=== PATIENT | female | born 1945 | race Two or more races ===

== ENCOUNTER → 2021-05-23 | Outpatient (CLI) | payer OTHER | END | disposition home or self-care (01) | LOC: NUCLEAR 07:59 | PROVIDERS: ATTEND Internal Medicine Cardiovascular Disease | DX: I10 Essential (primary) hypertension (principal); R01.1 Cardiac murmur, unspecified ==

== ENCOUNTER 2021-08-14 07:15 | Outpatient (CLI) | payer OTHER | END 2021-08-14 07:16 | disposition home or self-care (01) | LOC: NUCLEAR 07:15 | PROVIDERS: ATTEND Internal Medicine Cardiovascular Disease | DX: I25.10 Atherosclerotic heart disease of native coronary artery without angina pectoris (principal); I20.1 Angina pectoris with documented spasm | CPT/HCPCS: 78452; 93017; A9500; J0153 ==